=== PATIENT | male | born 1990 | race Caucasian/White ===

== ENCOUNTER 2017-05-15 09:57 | Emergency (ER) | payer OTHER, BC ==
[2017-05-15 10:12] VITALS: BP 143/86; TEMP 97.8; BMI 25.7
[2017-05-15] MEDS ORDERED: DILAUDID 1 MG/ML SYRINGE IM STA (10:18)
--- NOTE | 2017-05-15 10:47 | DI ---
EXAM: Three views of the right fingers. History: Trauma of the right fingers. Findings: No acute fracture or dislocation. No abnormal calcifications or radiopaque foreign bodies . Soft tissue laceration and soft tissue swelling of the third digit. Impression: No acute osseous abnormality. Soft tissue swelling and soft tissue laceration of the ri ght third digit. New
[2017-05-15] MEDS ORDERED: LIDOCAINE HCL 1% SDV SUBCUT STA (11:09)
--- NOTE | 2017-05-15 11:21 | ED.PDOC ---
General ED Provider: Dr. RAO HECK Chief Complaint: Finger Laceration Stated Complaint: finger laceration Time Seen by Physician: 10:00 (see photos before and after ) Information Source: Patient Exam Limitations: No limitations Primary Care Provider: CRISTY RIVAS Nursing and Triage Documentation Reviewed and Agree: Yes (tetnus UTD PER PT ) Musculoskeletal Complaint Exam - Upper Extremity Complaint/Exam Location of Pain: Reports: Right (third finger laceration by blunt injury see photos) Mechanism of Injury: Reports: Trauma Onset/Duration: 21 hr ago Symptoms Are: Still present Timing: Constant Episodes Lasting: Minutes Initial Severity: Moderate Current Severity: Moderate Location: Reports: Discrete Character: Reports: Throbbing, Spasmodic Aggravating: Reports: Movement Alleviating: Reports: Rest Non-Orthopedic Risk Factors: Reports: None DVT Risk Factors: Reports: None Septic Arthritis Risk Factors: Reports: None Related Surgical History: Reports: None Upper Extremity Findings: Present: Laceration NV Bundle Intact Distal to Injury: No Compartment Syndrome Risk Factors: Present: Pain Differential Diagnoses: Open Fracture, Closed Fracure, Laceration, Other Review of Systems - Review Of Systems Constitutional: Reports: No symptoms Eyes: Reports: No symptoms Ears, Nose, Mouth, Throat: Reports: No symptoms Respiratory: Reports: No symptoms Cardiac: Reports: No symptoms GI: Reports: No symptoms : Reports: No symptoms Musculoskeletal: Reports: Other (laceration see photos) Skin: Reports: No symptoms Neurological: Reports: No symptoms Endocrine: Reports: No symptoms Hematologic/Lymphatic: Reports: No symptoms All Other Systems: Reviewed and Negative Past Medical History - Past Medical History Previously Healthy: Yes Endocrine: Reports: None Cardiovascular: Reports: None Respiratory: Reports: None Hematological: Reports: None Gastrointestinal: Reports: None Genitourinary: Reports: None Neuro/Psych: Reports: None Musculoskeletal: Reports: None Cancer: Reports: None - Surgical History General Surgical History: Reports: None - Family History Family History: Reports: None - Social History Smoking Status: Never smoker Hx Substance Use: No Alcohol Screening: None - Immunizations Tetanus Shot up to Date: Yes (Nov, 2016) Physical Exam - Physical Exam Appearance: Well-appearing, No pain distress, Well-nourished Eyes: SUSHIL, EOMI, Conjunctiva clear ENT: Ears normal, Nose normal, Oropharynx normal Respiratory: Airway patent, Breath sounds clear, Breath sounds equal, Respirations nonlabored Cardiovascular: RRR, Pulses normal, No rub, No murmur GI/: Soft, Nontender, No masses, Bowel sounds normal, No Organomegaly Musculoskeletal: Limited ROM (right third finger . a laceration of the nail bed and a laceration of the distal tip of the finger per photos) Skin: Warm, Dry, Normal color Neurological: Sensation intact, Motor intact, Reflexes intact, Cranial nerves intact, Alert, Oriented Psychiatric: Affect appropriate, Mood appropriate Procedures - Laceration/Wound Repair No standard instances Wound Description: Irregular, Stellate Wound Length (cm): 1 cm Wound Width: 2mm Wound Depth: 2mm Wound Explored: Contaminated Wound Irrigated: Yes Wound Prep: Saline, Hibiclens Anesthesia: Lidocaine (plain 1 ml) Wound Debrided: Minimal Undermining: Minimal Wound Margins: Vermilion border aligned Wound Repaired With: Sutures Suture Size and Type: 3 prolene Number of Sutures: 6 Number of [place]: 0 Layer Closure?: No Sterile Dressing Applied?: Yes Splint Applied?: Yes (antibiotics perscribed ) Critical Care Note - Critical Care Note Total Time (mins): 0 Course - Course Orders, Labs, Meds: Orders Category Date Time Status Hydromorphone HCl [Dilaudid 1 mg/ml Syringe] MEDS 05/15/17 10:18 Discontinued 1 mg IM ONCE STA Lidocaine HCl/Pf [Lidocaine HCl 1% Sdv] MEDS 05/15/17 11:09 Stat 5 ml SUBCUT ONCE STA FINGER(S) RIGHT MIN 2V Stat RADS 05/15/17 10:20 Completed Medications Discontinued Medications Generic Name Dose Route Start Last Admin Trade Name Freq PRN Reason Stop Dose Admin Hydromorphone HCl 1 mg 05/15/17 10:18 05/15/17 10:27 Dilaudid 1 Mg/Ml Syringe IM 05/15/17 10:19 1 mg ONCE STA Administration Lidocaine HCl 5 ml 05/15/17 11:09 Lidocaine Hcl 1% Sdv SUBCUT 05/15/17 11:10 ONCE STA Vital Signs: Temp Pulse Resp BP Pulse Ox 05/15/17 10:02 97.8 F 76 20 143/86 H 100 Departure - Departure Time of Disposition: 11:40 Disposition: HOME SELF-CARE Discharge Problem: Laceration of finger Instructions: Subungual Hematoma (ED), Laceration (ED), Hematoma (ED), Stitches Removal (ED) Condition: Good Pt referred to PMD for follow-up: Yes Additional Instructions: Please call your Family Physician as soon as possible to schedule a follow-up appointment. Prescriptions: Hydrocodone/Acetaminophen [Denn[place] 10-325 Tablet] 1 each PO Q8HR #14 tablet Allergies/Adverse Reactions: Allergies No Known Allergies Allergy (Unverified 05/15/17 10:09) Home Medications: Ambulatory Orders Hydrocodone/Acetaminophen [Dennison 10-325 Tablet] 1 each PO Q8HR #14 tablet Disposition Discussed With: Patient
== END 2017-05-15 11:57 | disposition home or self-care (01) ==
LOC: ED 09:57
DX: S61.312A Laceration without foreign body of right middle finger with damage to nail, initial encounter (principal); W22.8XXA Striking against or struck by other objects, initial encounter
CPT/HCPCS: 96372; 99283